=== PATIENT | male | born 1985 | race Asian ===

== ENCOUNTER 2019-08-06 14:31 | Emergency (ER) | payer OTHER ==
[~2019-08-06] VITALS: Ht 170.2 cm; Wt 57.2 kg
[2019-08-06 15:35] VITALS: BP 137/89
--- NOTE | 2019-08-06 16:13 | NUR ---
PT TO ER BED 11
[2019-08-06] MEDS ORDERED: MECLIZINE 25 MG TAB PO ONE (16:30)
--- NOTE | 2019-08-06 16:37 | NUR ---
C/O AWOKEN BY MOTHER THIS AFTERNOON, STOOD UP FAST AND SUDDEN ONSET OF ROOM SPINNING WITH NAUSEA---DENIES INJURY. HAS HAD DIZZINESS OCCUR WITH STANDING UP FAST BEFORE BUT NEVER FELT "VERTIGO" LIKE TODAY. THE SPINNING LASTED 5 MINUTES, THEN DIZZINESS SLOWLY SUBSIBED OVER THE NEXT HOUR. FULL CLEAR SPEECH, AMBULATORY WITH STEADY GAIT STATES NO MORE DIZZINESS NOW. DENIES NV AT THIS TIME. PT HAS ATE OWN FOOD (SANDWICH) AT BEDSIDE. HX---DENIES RX---NONE
[2019-08-06 17:49] VITALS: BP 107/58
--- NOTE | 2019-08-06 17:51 | NUR ---
Patient discharged with v/s stable. Written and verbal after care instructions given and explained. Patient alert, oriented and verbalized understanding of instructions. Ambulatory with steady gait. All questions addressed prior to discharge. ID band removed. Patient advised to follow up with PMD. Rx of MECLIZINE HYDROCHLORIDE given. Patient educated on indication of medication including possible reaction and side effects. Opportunity to ask questions provided and answered.
== END 2019-08-06 17:51 | disposition home or self-care (01) ==
LOC: MED 14:31
DX: R42 Dizziness and giddiness (principal); R11.0 Nausea
CPT/HCPCS: 99283; J8597

== ENCOUNTER 2019-08-07 00:45 | Emergency (ER) | payer OTHER ==
[~2019-08-07] VITALS: Ht 167.6 cm; Wt 52.2 kg
[2019-08-07 00:50] VITALS: BP 131/83
--- NOTE | 2019-08-07 01:00 | NUR ---
PT TAKEN TO BED 2
--- NOTE | 2019-08-07 01:02 | NUR ---
33/M PRESENTED TO ED C/O VERTIGO; "FEELS LIKE THE ROOM IS SPINNING". PT STATES HE WAS DISCHARGED AROUND TODAY FOR SIMILAR S/SX. SENT HOME WITH RX FOR MECLIZINE. PT STATES "I WENT TO THE STORE BUT I FORGOT TO LOAN EXPEDITOR MY MEDICINE SO I FIGURED TO COME BACK SINCE I WAS FEELING THE SAME EARLIER". PT REPORTS MILD NAUSEA AND MILD HEADACHE. 3/10 PAIN. PT EATING IN WAITING ROOM. DENIES PAST MED HX. RX CORTISONE CREAM NEEDED. DENIES ALLERGIES.
--- NOTE | 2019-08-07 01:11 | NUR ---
Dr. aGrcia examining patient.
[2019-08-07] MEDS ORDERED: MECLIZINE 25 MG TAB PO ONE (01:35)
[2019-08-07] MEDS ORDERED: IBUPROFEN 800 MG TAB PO ONE (01:35)
[2019-08-07 01:56] VITALS: BP 131/83
--- NOTE | 2019-08-07 01:56 | NUR ---
Patient discharged with v/s stable. Written and verbal after care instructions given and explained. Patient verbalized understanding. Ambulatory with steady gait. All questions addressed prior to discharge. Advised to follow up with PMD.
== END 2019-08-07 01:56 | disposition home or self-care (01) ==
LOC: MED 00:45
DX: R42 Dizziness and giddiness (principal); R51 Headache
CPT/HCPCS: 99283; J8597

== ENCOUNTER 2020-08-03 11:04 | Emergency (ER) | payer OTHER ==
[~2020-08-03] VITALS: Ht 165.1 cm; Wt 52.2 kg
[2020-08-03 11:06] VITALS: BP 115/58
--- NOTE | 2020-08-03 11:09 | NUR ---
WAIT AT LOBBY
--- NOTE | 2020-08-03 11:19 | NUR ---
PATIENT AMBULATED TO BED 5.
--- NOTE | 2020-08-03 11:24 | NUR ---
C/O BLISTER BOTH HANDS X 1 MONTH.PT AOX 4 , AFIBRILE , AMBULATORY WITH STEADY GAIT ,SOME HAND PAIN 01/22 . MED HX: ASTHMA
--- NOTE | 2020-08-03 12:57 | NUR ---
dr mancini at bedside evaluating pt.
[2020-08-03 13:20] VITALS: BP 115/58
--- NOTE | 2020-08-03 13:20 | NUR ---
Patient discharged with v/s stable. Written and verbal after care instructions given and explained regarding rash . Patient alert, oriented and verbalized understanding of instructions. Ambulatory with steady gait. All questions addressed prior to discharge. ID band removed. Patient advised to follow up with PMD. Rx of prednisone given. Patient educated on indication of medication including possible reaction and side effects. Opportunity to ask questions provided and answered.
== END 2020-08-03 13:20 | disposition home or self-care (01) ==
LOC: MED 11:04
DX: R21 Rash and other nonspecific skin eruption (principal); J45.909 Unspecified asthma, uncomplicated
CPT/HCPCS: 99283

== ENCOUNTER 2020-08-14 07:02 | Emergency (ER) | payer OTHER ==
[~2020-08-14] VITALS: Ht 170.2 cm; Wt 54.9 kg
[2020-08-14 07:09] VITALS: BP 112/59
--- NOTE | 2020-08-14 07:10 | NUR ---
Pt ambulated to bed 11
--- NOTE | 2020-08-14 07:25 | NUR ---
Dr Suero at bedside examining pt
[2020-08-14 07:42] VITALS: BP 112/59
--- NOTE | 2020-08-14 07:42 | NUR ---
dPatient discharged with v/s stable. Written and verbal after care instructions given and explained. Patient verbalized understanding. Ambulatory with steady gait. All questions addressed prior to discharge. Advised to follow up with PMD.
== END 2020-08-14 07:42 | disposition home or self-care (01) ==
LOC: MED 07:02
DX: S31.20XA Unspecified open wound of penis, initial encounter (principal); J45.909 Unspecified asthma, uncomplicated; B00.9 Herpesviral infection, unspecified; X58.XXXA Exposure to other specified factors, initial encounter; Y93.89 Activity, other specified; Y92.89 Other specified places as the place of occurrence of the external cause; Y99.8 Other external cause status
CPT/HCPCS: 99281

== ENCOUNTER 2021-09-01 08:33 | Emergency (ER) | payer OTHER ==
[~2021-09-01] VITALS: Ht 167.6 cm; Wt 56.2 kg
[2021-09-01 08:38] VITALS: BP 130/80
[2021-09-01] MEDS ORDERED: NAPR-54 PO (09:18)
[2021-09-01] MEDS ORDERED: CHLO118S1 TP (09:18)
--- NOTE | 2021-09-01 09:24 | NUR ---
36 y/o F BIB self from home c/o tongue laceration x 2 days ago while eating. Pt A&Ox4, ambulatory, states he was eating a sandwich and bit on his tongue. Pt states bleeding now controlled; noted with pain states 5/10, burning/constant, non-radiating. Denies any medications prior to arrival. PMH: asthma NKA Sx: Denies
--- NOTE | 2021-09-01 09:26 | NUR ---
No nursing interventions performed
--- NOTE | 2021-09-01 09:26 | NUR ---
Patient discharged with v/s stable. Written and verbal after care instructions given and explained. Patient alert, oriented and verbalized understanding of instructions. Ambulatory with steady gait. All questions addressed prior to discharge. ID band removed. Patient advised to follow up with PMD. Rx of Chlorhexidine Gluconate, Naproxen given. Patient educated on indication of medication including possible reaction and side effects. Opportunity to ask questions provided and answered.
== END 2021-09-01 09:26 | disposition home or self-care (01) ==
LOC: MED 08:33
DX: S00.532A Contusion of oral cavity, initial encounter (principal); K14.0 Glossitis; J45.909 Unspecified asthma, uncomplicated; Z79.899 Other long term (current) drug therapy; Y33.XXXA Other specified events, undetermined intent, initial encounter; Y93.89 Activity, other specified; Y92.89 Other specified places as the place of occurrence of the external cause; Y99.8 Other external cause status
CPT/HCPCS: 99282

== ENCOUNTER 2022-01-12 08:14 | Emergency (ER) | payer OTHER ==
[~2022-01-12] VITALS: Ht 165.1 cm; Wt 56.7 kg
[~2022-01-12 08:14] MED LIST: CHLO118S1 TP; NAPR-54 PO
[2022-01-12 08:18] VITALS: BP 124/83
--- NOTE | 2022-01-12 08:18 | NUR ---
PT AMBULATED TO BED 03.
--- NOTE | 2022-01-12 08:23 | NUR ---
36 y/o male ambulated to bed 3 with steady gait, c/o productive cough for 3 days. denies sob, cp, sore throat, fevers, chills or anyone sick at home. pt is requesting refill for inhaler. pmh: asthma med: denies nka
--- NOTE | 2022-01-12 08:41 | NUR ---
Dr Jensen at bedside performing MSE
[2022-01-12] MEDS ORDERED: ROB PO (08:44)
[2022-01-12] MEDS ORDERED: ALBU0.0912 IH (08:44)
[2022-01-12 08:45] VITALS: BP 124/83
--- NOTE | 2022-01-12 08:45 | NUR ---
Patient discharged with v/s stable. Written and verbal after care instructions given and explained. Patient alert, oriented and verbalized understanding of instructions. Ambulatory with steady gait. All questions addressed prior to discharge. ID band removed. Patient advised to follow up with PMD. Rx of ALBUTEROL SULFATE, GUAIFENESIN given. Patient educated on indication of medication including possible reaction and side effects. Opportunity to ask questions provided and answered.
== END 2022-01-12 08:45 | disposition home or self-care (01) ==
LOC: MED 08:14
DX: J06.9 Acute upper respiratory infection, unspecified (principal); J45.909 Unspecified asthma, uncomplicated; Z79.899 Other long term (current) drug therapy
CPT/HCPCS: 99283

== ENCOUNTER 2022-12-15 15:31 | Emergency (ER) | payer OTHER ==
[~2022-12-15] VITALS: Ht 165.1 cm; Wt 52.2 kg
[~2022-12-15 15:31] MED LIST changes: +ALBU0.0912 IH; +ROB PO
[2022-12-15 15:41] VITALS: BP 108/68
--- NOTE | 2022-12-15 15:46 | NUR ---
PT AMB TO BED 2
[2022-12-15] MEDS ORDERED: [UNRECOGNIZED DRUG - CODE] TP (16:25)
[2022-12-15 16:28] VITALS: BP 108/68
--- NOTE | 2022-12-15 16:28 | NUR ---
Patient discharged with v/s stable. Written and verbal after care instructions given and explained. Patient alert, oriented and verbalized understanding of instructions. Ambulatory with steady gait. All questions addressed prior to discharge. ID band removed. Patient advised to follow up with PMD. Rx of petrolatum (sent) given. Patient educated on indication of medication including possible reaction and side effects. Opportunity to ask questions provided and answered.
== END 2022-12-15 16:28 | disposition home or self-care (01) ==
LOC: MED 15:31
DX: R04.0 Epistaxis (principal); J45.909 Unspecified asthma, uncomplicated; Z79.899 Other long term (current) drug therapy
CPT/HCPCS: 99282